=== PATIENT | female | born 1935 | race Caucasian/White ===

== ENCOUNTER → 2016-08-28 | Outpatient (CLI) | payer MEDICARE ==
[~2016-08-28] MED LIST: ACET-819 PO; AMLO10TA82 PO; AMLO5TAB2 PO; AMOX500C2 PO; APIX5TAB2 PO; ASP81TEC PO; BNZ20T PO; CEFA-4 PO; CLPD75T PO; CODE-54 PO; CPR500T PO; DRON400T PO; FAMO20TA13 PO; FURO20TA4 PO; HYDR-757 PO; LVT.05T PO; LVT.1T PO; MULT-298 PO; NF-CODDM PO; OMEP20CA12 PO; OMEP20TA2 PO; PNT40TEC PO; POTA10CA43 PO; PRAS10TA6 PO; PRAV10TA PO; SIMV20TA3 PO; STL80T PO
--- NOTE | 2016-08-30 10:05 | ECHOCARDIOGRAPHY REPORT ---
DATE OF SERVICE: 08/28/2016 TWO DIMENSIONAL ECHOCARDIOGRAM REFERRING PHYSICIAN: Josue Modi MD MEASUREMENT: LVID end diastolic 4.0, IVS thickness 1.2, LVPW thickness 1.1, left atrial diameter 3.9, ejection fraction 60%. FINDINGS: 1. Technical quality is good. 2. The left ventricle is normal in size with normal contractility, systolic function appeared to be normal. Estimated ejection fraction is 60%, diastolic dysfunction is suggested by Doppler. 3. The left atrium is in the upper normal limits in size. No clot or thrombus were seen within the left atrium. 4. The right atrium and right ventricle are normal in size. No clot or thrombus were seen within the right side. 5. Mitral valve is normal in morphology with mild mitral regurgitation noted by color Doppler flow. No mitral valve prolapse. No mitral valve stenosis. 6. Aortic valve is trileaflet with normal opening and closing pattern. No significant aortic stenosis or regurgitation was seen. 7. Tricuspid valve is normal in morphology with mild tricuspid regurgitation noted by color Doppler flow. Doppler across triscuspid valve estimated pulmonary artery pressure of 30 plus right atrial pressure. 8. Pulmonic valve is functioning normally. 9. No pericardial effusion. CONCLUSION: 1. Normal left ventricular size and systolic function, estimated ejection fraction is 60%, diastolic dysfunction is suggested by Doppler. 2. Left atrium is in the upper normal limit in size. 3. Mild mitral and tricuspid regurgitation. 4. Estimated pulmonary artery pressure of 35 to 40 mmHg. Job ID: [id number] DocumentID: [id number] Dictated Date: 08/29/2016 16:07:44 Senior Economist Date: 08/29/2016 19:30:02 Dictated By: DENAE GARCIA MD
== END ==
LOC: CARD 10:29
PROVIDERS: ATTEND Physician Assistant
DX: I48.0 Paroxysmal atrial fibrillation (principal); I25.10 Atherosclerotic heart disease of native coronary artery without angina pectoris; I10 Essential (primary) hypertension; E78.2 Mixed hyperlipidemia
CPT/HCPCS: 93306

== ENCOUNTER → 2016-08-29 | Outpatient (CLI) | payer MEDICARE ==
[~2016-08-29] VITALS: Ht 157.5 cm; Wt 72.6 kg
[~2016-08-29] MED LIST changes: +CATHETER FLUSH 10 ML SYR IV PRN; +REGADENOSON 0.4 MG/5 ML SYR (LEXISCAN) IV ONE
[2016-08-29 13:34] VITALS: BP 188/88
[2016-08-29 13:37] VITALS: BP 201/100
[2016-08-29 13:41] VITALS: BP 167/74
--- NOTE | 2016-08-30 06:13 | STRESS TEST ---
DATE OF SERVICE: 08/29/2016 LEXISCAN MYOVIEW STRESS TEST REPORT REFERRING PHYSICIAN: Dr. Modi. Baseline heart rate is 66. Baseline blood pressure 188/88. Baseline EKG is sinus rhythm with no ischemic changes. In summary, the patient was injected with 10.18 mCi of technetium-99 Myoview and the resting images were obtained. Then, the patient received 0.4 mg of Lexiscan followed by 29.6 mCi of technetium-99 Myoview. Throughout the test, there were no EKG changes. There is mild apical thinning affecting the quality of the images. Overall, there is no significant ischemia or infarction that was noted. SSS 6. SDS 3. TID value 0.91. On the gated images, the left ventricle appeared to be small in size with normal contractility. Calculated ejection fraction 85%. CONCLUSIONS: 1. The patient tolerated Lexiscan well. 2. Apical thinning with no significant ischemia or infarction on SPECT images. 3. Small left ventricular size with normal contractility, calculated ejection fraction 85%. Job ID: [id number] DocumentID: [id number] Dictated Date: 08/29/2016 15:17:50 Buttoner Date: 08/29/2016 20:04:55 Dictated By: DENAE GARCIA MD
== END ==
LOC: CARD 11:56
PROVIDERS: ATTEND Physician Assistant
DX: I48.0 Paroxysmal atrial fibrillation (principal); I25.10 Atherosclerotic heart disease of native coronary artery without angina pectoris; I10 Essential (primary) hypertension; E78.2 Mixed hyperlipidemia
CPT/HCPCS: 78452; 93017

== ENCOUNTER 2016-09-11 15:49 | Outpatient (RCR) | payer MEDICARE ==
[~2016-09-11 15:49] MED LIST changes: -CATHETER FLUSH 10 ML SYR IV PRN; -REGADENOSON 0.4 MG/5 ML SYR (LEXISCAN) IV ONE
== END 2016-09-11 16:42 | disposition home or self-care (01) ==
DX: M54.5 Low back pain (principal)

== ENCOUNTER → 2017-03-13 | Outpatient (CLI) | payer MEDICARE ==
--- NOTE | 2017-03-14 14:54 | Diagnostic Imaging Report ---
Bilateral screening mammogram 2D views with tomosynthesis The current study was also evaluated with a Computer Aided Detection (CAD) system. Indication: Screening. No current complaints stated on the questionnaire. COMPARISON: 03/05/2016. Findings: The breasts are composed of scattered fibroglandular densities. There are bilateral scattered benign-appearing and vascular calcifications seen bilaterally. Pacemaker projecting over the left axillary region seen. Allowing for technique and positional differences, no suspicious change is seen. IMPRESSION: No significant change. ACR BI-RADS Category 2: Benign findings. Result letter will be mailed to the patient. Note: At least 10% of breast cancer is not imaged by mammography. Dictated by: Dictated on workstation # [id number]
== END ==
LOC: RAD 14:04
DX: Z12.31 Encounter for screening mammogram for malignant neoplasm of breast (principal)
CPT/HCPCS: 77067

== ENCOUNTER → 2017-10-16 | Outpatient (CLI) | payer MEDICARE ==
--- NOTE | 2017-10-16 15:57 | Diagnostic Imaging Report ---
EXAMINATION: Lumbar spine. INDICATION: Back pain. AP, lateral, and spot lateral views were obtained. FINDINGS: The AP view does show pronounced levoscoliosis of the upper lumbar spine. The scoliosis has progressed since the prior CT abdomen/pelvis exam of 03/01/2008. There is also severe degenerative disc and bony disease at L1-2, L2-3, and L3-4. There also appear to be six lumbar-type segments. This is a developmental variant. There is no fracture or acute bony abnormality appreciated. There is no sign of a paraspinal mass. There is mild symmetrical sclerosis of the sacroiliac joints. IMPRESSION: 1. There is no evidence for an acute bony abnormality. 2. There is severe levoscoliosis of the upper lumbar spine. There is also significant degenerative disc and bony disease of L1-2, L2-3, and L3-4. 3. If there is clinical concern regarding spinal stenosis or nerve root encroachment, then MRI would be recommended for additional study. Dictated by: Dictated on workstation # [id number]
--- NOTE | 2017-10-16 16:01 | Diagnostic Imaging Report ---
EXAMINATION: Right hip at 3:26 p.m. INDICATION: Hip pain. AP and lateral views were obtained. FINDINGS: There is no fracture, dislocation, or acute bony abnormality evident. There is mild degenerative disease involving the hip joint. The degenerative changes have not progressed since the prior CT abdomen/pelvis exam of 03/01/2008. The mild sclerosis of the right sacroiliac joint seen previously is also no different. The soft tissues are unremarkable. IMPRESSION: There is no evidence for an acute bony abnormality. Dictated by: Dictated on workstation # [id number]
== END ==
LOC: RAD 14:41
DX: M51.36 Other intervertebral disc degeneration, lumbar region (principal); M41.86 Other forms of scoliosis, lumbar region
CPT/HCPCS: 72100; 73502

== ENCOUNTER → 2017-10-21 | Outpatient (CLI) | payer MEDICARE ==
--- NOTE | 2017-10-21 12:52 | Diagnostic Imaging Report ---
PROCEDURE: CT lumbar spine without contrast. TECHNIQUE: Multiple contiguous axial images were obtained through the lumbar spine without the use of intravenous contrast. Sagittal and coronal reformations were then performed. INDICATION: Low back pain. FINDINGS: Marked left convexity lumbar scoliotic curvature is noted. There is grade 1 spondylolisthesis of L5 on S1. There appears to be a pars defect on the left side at the L5-S1 level. The right-sided pars is intact. Significant degenerative disc disease at T12-L1, L1-L2 and L2-L3 levels is seen with disc space narrowing and marginal spurring. There is severe degenerative disc disease at L3-L4 with disc space narrowing and spurring as well as vacuum disc phenomena. Moderate degenerative disc disease at L5-S1 level is seen with disc space narrowing and vacuum disc phenomena. There is multilevel facet arthropathy, particularly left-sided facets at L4-L5 and L5-S1 levels. The vertebral body heights appear to be maintained. No acute fracture is identified. There appears to be right-sided neuroforaminal stenosis due to large right-sided osteophyte at L1-L2. Similar findings are identified on the right side at the L2-L3 level where there is a large right-sided osteophyte. There appears to be left neuroforaminal stenosis at L3-L4 level due to end plate osteophytes. There is also left neuroforaminal stenosis at L5-S1 level. There appears to be a moderate central canal stenosis at L4-L5 due to ligamentous thickening and broad-based disc/osteophyte complex. Remaining central canal appears to be patent. Paraspinous tissues demonstrate severe atherosclerotic calcifications in the abdominal aorta which is nonaneurysmal. IMPRESSION: Severe lumbar scoliosis and spondylosis with multilevel neuroforaminal stenosis described level by level above. No acute fracture is seen. There is spondylolisthesis of L5 on S1 with left-sided L5-S1 pars defect. Dictated by: Dictated on workstation # [id number]
== END ==
LOC: RAD 12:07
DX: M51.35 Other intervertebral disc degeneration, thoracolumbar region (principal); M51.37 Other intervertebral disc degeneration, lumbosacral region; M41.86 Other forms of scoliosis, lumbar region; M43.17 Spondylolisthesis, lumbosacral region; M46.87 Other specified inflammatory spondylopathies, lumbosacral region; M99.73 Connective tissue and disc stenosis of intervertebral foramina of lumbar region; I70.0 Atherosclerosis of aorta
CPT/HCPCS: 72131

== ENCOUNTER → 2018-08-22 | Outpatient (CLI) | payer MEDICARE | LOC: CARD 12:38 | PROVIDERS: ATTEND Physician Assistant | DX: I25.10 Atherosclerotic heart disease of native coronary artery without angina pectoris (principal); R07.9 Chest pain, unspecified; I10 Essential (primary) hypertension; E78.5 Hyperlipidemia, unspecified; K21.9 Gastro-esophageal reflux disease without esophagitis; I08.3 Combined rheumatic disorders of mitral, aortic and tricuspid valves | CPT/HCPCS: 93306 ==

== ENCOUNTER → 2018-08-25 | Outpatient (CLI) | payer MEDICARE ==
[~2018-08-25] MED LIST changes: +CATHETER FLUSH 10 ML SYR IV PRN; +REGADENOSON 0.4 MG/5 ML SYR (LEXISCAN) IV ONE
[2018-08-25 09:38] VITALS: BP 196/92
[2018-08-25 09:42] VITALS: BP 195/103
[2018-08-25 09:43] VITALS: BP 195/103
--- NOTE | 2018-08-25 15:24 | STRESS TEST ---
DATE OF SERVICE: 08/25/2018 LEXISCAN MYOVIEW STRESS TEST REPORT REFERRING PHYSICIAN: Josue Modi MD INDICATION: Chest pain. FINDINGS: Baseline heart rate is 69, baseline blood pressure 196/92. Baseline EKG is sinus rhythm with no ischemic changes. SUMMARY: The patient was injected with 10.08 mCi of technetium-99 Myoview and the resting images were obtained. Then, the patient received 0.4 mg of Lexiscan followed by 31.2 mCi of technetium-99 Myoview. Throughout the test, there were no EKG changes. The resting and stress images were reviewed and compared in the short axis, horizontal long axis, and vertical long axis views. Review of the images showed small left ventricle with no significant ischemia or infarction. SSS is 2, SDS of 0, TID value of 1.1. On the gated images, the left ventricle appeared to be in normal size with normal contractility. Calculated ejection fraction is 60%. CONCLUSION: 1. The patient tolerated Lexiscan well. 2. Typical female pattern with no significant ischemia or infarction on SPECT images. 3. Normal left ventricular size with normal contractility. Calculated ejection fraction 60%. Job ID: [id number] DocumentID: [id number] Dictated Date: 08/25/2018 11:44:35 Browning Processor Date: 08/25/2018 15:23:26 Dictated By: DENAE GARCIA MD
== END ==
LOC: CARD 08:02
PROVIDERS: ATTEND Physician Assistant
DX: I25.10 Atherosclerotic heart disease of native coronary artery without angina pectoris (principal); R07.9 Chest pain, unspecified; I10 Essential (primary) hypertension; K21.9 Gastro-esophageal reflux disease without esophagitis; E78.5 Hyperlipidemia, unspecified
CPT/HCPCS: 78452; 93017

== ENCOUNTER 2021-02-22 05:07 | Emergency (ER) | payer MEDICARE ==
[~2021-02-22] VITALS: Ht 157.4 cm; Wt 71.2 kg
[~2021-02-22 05:07] MED LIST changes: -CATHETER FLUSH 10 ML SYR IV PRN; -REGADENOSON 0.4 MG/5 ML SYR (LEXISCAN) IV ONE
--- NOTE | 2021-02-22 05:55 | ED General ---
General Chief Complaint: Cough/Cold/Flu Symptoms Stated Complaint: COUGH,CONGESTION,DIARRHEA Nursing Triage Note: Pt arrives via POV from home for c/o cough, congestion, et diarrhea; onset . Pt denies known COVID positive contacts. Pt states she has received Moderna COVID vaccine x2. Pt reports SOB on exertion but states this is chronic. Source of Information: Patient Exam Limitations: No Limitations (CASIMIRO BHAGAT MD) History of Present Illness Date Seen by Provider: Feb 22, 2021 Time Seen by Provider: 05:14 Initial Comments This 85-year-old woman presents to the emergency room with complaints of cough, congestion, diarrhea, nausea, and mild shortness of breath for about 5 days. She denies any fever. She states her has been encouraging her to be seen. Her primary care doctor is not in the office today so she decided to come to the emergency room. She has numerous health problems including atrial fib rillation, coronary artery disease, hypothyroidism, and diabetes. She reports being started on Metformin a few months ago when she is due for labs. She has been vaccinated for COVID-19 x2 but not influenza. (CASIMIRO BHAGAT MD) Allergies and Home Medications Allergies Coded Allergies: Sulfa (Sulfonamide Antibiotics) (Verified Allergy, Unknown, 12/29/09) acetaminophen (Unverified Allergy, Unknown, 07/18/13) cefaclor (Verified Allergy, Unknown, 12/29/09) meperidine (Verified Allergy, Unknown, 12/29/09) propoxyphene (Unverified Allergy, Unknown, 07/18/13) Patient Home Medication List Home Medication List Reviewed: Yes (CASIMIRO BHAGAT MD) Acetaminophen (Tylenol Extra Strength Arthrit) 500 Mg Tablet, 500 MG PO BID PRN, (Reported) Entered as Reported by: YAKOV TIJERINA on 12/29/09 1611 Acetaminophen/Codeine (Tylenol W/Codeine #3 Tablet) 1 Tab Tablet, 1 TAB PO Q4H PRN for PAIN Prescribed by: STEPHANIE GARCIA on 03/05/142210 Amlodipine Besylate (Amlodipine Besylate) 5 Mg Tablet, 5 MG PO DAILY, (Reported) Entered as Reported by: PAOLO KATHLEEN on 03/05/142120 Apixaban (Eliquis Tablet) 5 Mg Tablet, 5 MG PO BID Prescribed by: RODNEY KELSEY on 07/22/13 1522 Benazepril Hcl (Lotensin 20 Mg) 20 Mg Tablet, 20 MG PO DAILY, (Reported) Entered as Reported by: YAKOV TIJERINA on 12/29/09 1611 Furosemide (Furosemide) 20 Mg Tablet, 1 EACH PO DAILY, (Reported) Entered as Reported by: PAOLO KATHLEEN on 03/05/142120 Levothyroxine Sodium (Synthroid) 100 Mcg Tablet, 100 MCG PO DAILY, (Reported) Entered as Reported by: RODNEY WHITNEY on 03/01/11 1407 Pantoprazole Sodium (Protonix) 40 Mg Tablet.dr, 40 MG PO DAILY, (Reported) Entered as Reported by: TRINI BARRY on 08/24/132003 Potassium Chloride (Potassium Chloride 10 Meq Cap) 10 Meq Capsule.sa, 1 EACH PO DAILY WITH FOOD, (Reported) Entered as Reported by: PAOLO KATHLEEN on 03/05/142120 Pravastatin Sodium (Pravastatin Sodium) 10 Mg Tablet, 20 MG PO HS Prescribed by: RODNEY KELSEY on 07/22/13 152 Sotalol Hcl (Betapace) 80 Mg Tab, 80 MG PO BID Prescribed by: DENAE DENNY on 08/28/13 0915 Review of Systems Review of Systems Constitutional: weakness EENTM: see HPI, other (Dry mouth) Respiratory: see HPI Cardiovascular: see HPI Gastrointestinal: see HPI Genitourinary: no symptoms reported Musculoskeletal: back pain (Chronic) Skin: no symptoms reported Psychiatric/Neurological: No Symptoms Reported Hematologic/Lymphatic: No Symptoms Reported Immunological/Allergic: no symptoms reported (CASIMIRO BHAGAT MD) Past Sldfkhf-Yvceam-Phmqyw Hx Patient Social History Tobacco Use?: No Use of E-Cig and/or Vaping dev: No Substance use?: No Alcohol Use?: No Pt feels they are or have been: No (CASIMIRO BHAGAT MD) Immunizations Up To Date Tetanus Booster (TDap): Less than 5yrs COVID19 Vaccine Account Services Representative: [place] (CASIMIRO BHAGAT MD) Past Medical History Surgeries: Yes Abdominal (D&C), Bladder Surgery, Coronary Stent Respiratory: No Cardiac: Yes Atrial Fibrillation, High Cholesterol, Hypertension Neurological: No : No Reproductive Disorders: Yes Genitourinary: Yes Bladder Infection Gastrointestinal: Yes Colitis, Gastroesophageal Reflux, Pancreatitis Musculoskeletal: Yes Arthritis Endocrine: Yes Hypothyroidsim HEENT: Yes Cataract Cancer: No Psychosocial: No Adverse Reaction/Blood Tranf: No (CASIMIRO BHAGAT MD) Family Medical History Reviewed Nursing Family Hx (CASIMIRO BHAGAT MD) Cancer of colon 19 MOTHER Family history: Cardiovascular disease 19 FATHER 19 MOTHER G8 BROTHER (CAD, CABG) G8 SISTER (AFIB, VALVE PROBLEMS) Family history: Hypertension 19 FATHER 19 MOTHER Heart disease 19 FATHER 19 MOTHER G8 BROTHER G8 SISTER History of - disorder 19 FATHER (TIA) History of - respiratory disease 19 MOTHER ( OF PULMONARY EMBOLISM) Myocardial infarction 19 FATHER G8 BROTHER Heart Disease, Diabetes, Stroke (CASIMIRO BHAGAT MD) Physical Exam Vital Signs Vital Signs - First Documented (IRIS MCFARLANE MD) Vital Signs Capillary Refill : Less Than 3 Seconds (CASIMIRO BHAGAT MD) Height, Weight, BMI Height: 5'2.00" Weight: 160lbs. 0.0oz. 72.708274mi; 28.00 BMI Method:Stated General Appearance: No Apparent Distress, WD/WN HEENT: PERRL/EOMI, Normal ENT Inspection, Other (Mucous membranes somewhat) Neck: Normal Inspection; No JVD Respiratory: Lungs Clear, No Accessory Muscle Use, No Respiratory Distress, Decreased Breath Sounds Cardiovascular: Regular Rate, Rhythm, No Edema, No Murmur Gastrointestinal: Normal Bowel Sounds, Non Tender, Soft Extremity: Normal Inspection, Non Tender, No Pedal Edema Neurologic/Psychiatric: Alert, Oriented x3, No Motor/Sensory Deficits, Normal Mood/Affect, central supply tech II-XII Norm as Tested Skin: Normal Color, Warm/Dry (CASIMIRO BHAGAT MD) Progress/Results/Core Measures Suspected Sepsis SIRS Temperature: Pulse: 62 Respiratory Rate: 18 Laboratory Tests 02/22/21 05:50: White Blood Count 10.5 Blood Pressure 190 /77 Mean: 114 Laboratory Tests 02/22/21 05:50: Creatinine 0.80, Platelet Count 242, Total Bilirubin 0.7 (CASIMIRO BHAGAT MD) Results/Orders Lab Results Laboratory Tests Test 02/22/21 05:20 12/1/21 05:50 Range/Units Influenza Type A (RT-PCR) Not Detected Not Detecte Influenza Type B (RT-PCR) Not Detected Not Detecte SARS-CoV-2 RNA (RT-PCR) Not Detected Not Detecte White Blood Count 10.5 4.3-11.0 10^3/uL Red Blood Count 4.25 3.80-5.11 10^6/uL Hemoglobin 12.6 11.5-16.0 g/dL Hematocrit 39 35-52 % Mean Corpuscular Volume 91 80-99 fL Mean Corpuscular Hemoglobin 30 25-34 pg Mean Corpuscular Hemoglobin Concent 33 32-36 g/dL Red Cell Distribution Width 13.2 10.0-14.5 % Platelet Count 242 130-400 10^3/uL Mean Platelet Volume 10.3 9.0-12.2 fL Immature Granulocyte % (Auto) 0 % Neutrophils (%) (Auto) 64 42-75 % Lymphocytes (%) (Auto) 17 12-44 % Monocytes (%) (Auto) 19 H 0-12 % Eosinophils (%) (Auto) 1 0-10 % Basophils (%) (Auto) 0 0-10 % Neutrophils # (Auto) 6.7 1.8-7.8 10^3/uL Lymphocytes # (Auto) 1.7 1.0-4.0 10^3/uL Monocytes # (Auto) 2.0 H 0.0-1.0 10^3/uL Eosinophils # (Auto) 0.1 0.0-0.3 10^3/uL Basophils # (Auto) 0.0 0.0-0.1 10^3/uL Immature Granulocyte # (Auto) 0.0 0.0-0.1 10^3/uL Sodium Level 140 135-145 MMOL/L Potassium Level 4.0 3.6-5.0 MMOL/L Chloride Level 104 98-107 MMOL/L Carbon Dioxide Level 24 21-32 MMOL/L Anion Gap 12 5-14 MMOL/L Blood Urea Nitrogen 12 7-18 MG/DL Creatinine 0.80 0.60-1.30 MG/DL Estimat Glomerular Filtration Rate 69 BUN/Creatinine Ratio 15 Glucose Level 156 H 70-105 MG/DL Calcium Level 9.5 8.5-10.1 MG/DL Corrected Calcium 9.5 8.5-10.1 MG/DL Magnesium Level 1.8 1.6-2.4 MG/DL Total Bilirubin 0.7 0.1-1.0 MG/DL Aspartate Amino Transf (AST/SGOT) 14 5-34 U/L Alanine Aminotransferase (ALT/SGPT) 7 0-55 U/L Alkaline Phosphatase 42 40-136 U/L Total Protein 7.4 6.4-8.2 GM/DL Albumin 4.0 3.2-4.5 GM/DL (IRIS MCFARLANE MD) Vital Signs/I&O 02/22/21 02/22/21 05:20 05:20 Temp 37.4 Pulse 62 Resp 18 B/P (MAP) 190/77 (114) Pulse Ox 95 O2 Delivery Room Air Room Air (IRIS MCFARLANE MD) Vital Signs/I&O Capillary Refill : Less Than 3 Seconds (CASIMIRO BHAGAT MD) Blood Pressure Mean: 114 Progress Note #1: Time: 06:10 Progress Note Patient was seen and examined. Labs and chest x-ray are pending. Although she has been vaccinated for COVID-19, we are swabbing her to test for breakthrough case. No therapies are required at this time. Care is being transferred to Dr. MCFARLANE at shift change. Progress Note #2: Time: 06:49 Progress Note Work-up was relatively benign. Chest x-ray showed some mild congestive features with cardiomegaly and BNP was minimally elevated. This does not appear to require acute treatment at this time. I am hesitant to recommend any diuretic therapy at this time due to her active diarrhea. Patient would appreciate something for cough suppression. I am prescribing Tessalon Perls for her. (CASIMIRO BHAGAT MD) Diagnostic Imaging Diagonstic Imaging: Xray (CASIMIRO BHAGAT MD) Diagonstic Imaging: Xray Plain Films/CT/US/NM/MRI: chest Comments [facility]. [place], [place] NAME: SHAWN OROSCO [facility] REC#: [id number] PT STATUS: REG ER : 1935 PHYSICIAN: CASIMIRO BHAGAT MD ADMIT DATE: 02/22/21/ER Draft Date of Exam:02/22/21 CHEST 1 VIEW, AP/PA ONLY INDICATION: Cough. TECHNIQUE: Single view chest 6:07 AM. CORRELATION STUDY: 08/04/2014 FINDINGS: Left-sided dual-chamber pacemaker. Cardiac enlargement. Vasculature slightly increased from prior. The lungs are clear with no consolidating infiltrate. There is no significant effusion or pneumothorax. IMPRESSION: 1. Cardiac enlargement with vasculature appearing slightly more prominent from prior. May reflect early fluid overload. Dictated on workstation # [id number] Dict: 02/22/21615 Trans: 02/22/2118 GRECIA [id number] Interpreted by: MARGO TERESA DO Electronically signed by: (IRIS MCFARLANE MD) Departure Impression Primary Impression: Cough Additional Impressions: Diarrhea Qualified Codes: R19.7 - Diarrhea, unspecified Abnormal chest x-ray Disposition: HOME, SELF-CARE Condition: Stable Departure-Patient Inst. Decision time for Depature: 06:51 (CASIMIRO BHAGAT MD) Referrals: KB MODI MD (PCP/Family) Primary Care Physician Patient Instructions: Diarrhea, Adult ED Add. Discharge Instructions: Your chest x-ray showed some mild congestion and enlargement of your heart. This may be due to some mild heart failure from your atrial fibrillation and coronary artery disease. This may eventually require some diuretic (water pill) therapy. Please follow-up with Dr. Modi and/or Dr. Denny as soon as possible to discuss this further. In the meantime, drink plenty of clear liquids to stay well-hydrated while you have diarrhea. You may use the Tessalon Perles as prescribed as a cough suppressant. Avoid dairy products or fatty or greasy foods until your diarrhea has been resolved for a few days. Call with questions or concerns. Return to emergency room if you have worsening symptoms. All discharge instructions reviewed with patient and/or family. Voiced understanding. Scripts Benzonatate (TESSALON PERLES) 100 Mg Capsule 200 MG PO TID PRN for COUGH, #20 CAP Prov: CASIMIRO BHAGAT MD 02/22/21 Copy Copies To 1: KB MODI MD Copies To 2: DENAE DENNY MD, JOSHUA T MD Feb 22, 2021 05:55 IRIS MCFARLANE MD Feb 22, 2021 06:29
[2021-02-22 05:58] LABS: BASOPHILS % (AUTO) 0 % (0-10); EOSINOPHILS # (AUTO) 0.1 10^3/uL (0.0-0.3); EOSINOPHILS % (AUTO) 1 % (0-10); HEMATOCRIT 39 % (35-52); HEMOGLOBIN 12.6 g/dL (11.5-16.0); LYMPHOCYTES # (AUTO) 1.7 10^3/uL (1.0-4.0); LYMPHOCYTES % (AUTO) 17 % (12-44); MEAN CORPUSCULAR HEMOGLOBIN 30 pg (25-34); MEAN CORPUSCULAR HGB CONC 33 g/dL (32-36); MEAN CORPUSCULAR VOLUME 91 fL (80-99); MEAN PLATELET VOLUME 10.3 fL (9.0-12.2); MONOCYTES % (AUTO) 19 % (0-12); NEUTROPHILS # (AUTO) 6.7 10^3/uL (1.8-7.8); NEUTROPHILS % (AUTO) 64 % (42-75); PLATELET COUNT 242 10^3/uL (130-400); WHITE BLOOD COUNT 10.5 10^3/uL (4.3-11.0)
[2021-02-22 06:10] LABS: CALCIUM 9.5 MG/DL (8.5-10.1)
[2021-02-22 06:11] LABS: TOTAL PROTEIN 7.4 GM/DL (6.4-8.2)
[2021-02-22 06:13] LABS: BILIRUBIN,TOTAL 0.7 MG/DL (0.1-1.0)
[2021-02-22 06:15] LABS: CREATININE SERUM 0.8 MG/DL (0.60-1.30)
[2021-02-22 06:17] LABS: MAGNESIUM 1.8 MG/DL (1.6-2.4)
--- NOTE | 2021-02-22 06:19 | Diagnostic Imaging Report ---
INDICATION: Cough. TECHNIQUE: Single view chest 6:07 AM. CORRELATION STUDY: 08/04/2014 FINDINGS: Left-sided dual-chamber pacemaker. Cardiac enlargement. Vasculature slightly increased from prior. The lungs are clear with no consolidating infiltrate. There is no significant effusion or pneumothorax. IMPRESSION: 1. Cardiac enlargement with vasculature appearing slightly more prominent from prior. May reflect early fluid overload. Dictated by: Dictated on workstation # [id number]
[2021-02-22 06:32] LABS: FREE T4 (FREE THYROXINE) 1.31 NG/DL (0.70-1.48)
[2021-02-22 06:36] LABS: NEUTROPHILS % (MANUAL) 72 %
[2021-02-22 06:37] LABS: LYMPHOCYTES % (MANUAL) 13 %; MONOCYTES % (MANUAL) 15 %; RBC MORPH NORMAL
[2021-02-22] MEDS ORDERED: BENZ100C18 PO (06:54)
[2021-02-22 07:06] VITALS: BP 190/77
== END 2021-02-22 07:06 | disposition home or self-care (01) ==
LOC: EDUNIT# 05:07 → ER 05:10
DX: R05.9 Cough, unspecified (principal); R19.7 Diarrhea, unspecified; I10 Essential (primary) hypertension; K21.9 Gastro-esophageal reflux disease without esophagitis; E03.9 Hypothyroidism, unspecified; I48.91 Unspecified atrial fibrillation; E78.00 Pure hypercholesterolemia, unspecified; I25.10 Atherosclerotic heart disease of native coronary artery without angina pectoris; E11.9 Type 2 diabetes mellitus without complications; Z20.822 Contact with and (suspected) exposure to COVID-19; Z79.890 Hormone replacement therapy; Z79.899 Other long term (current) drug therapy; Z79.01 Long term (current) use of anticoagulants
CPT/HCPCS: 36415; 71045; 80053; 83036; 83735; 83880; 84439; 84443; 85007; 85027; 87636

== ENCOUNTER → 2021-06-07 | Outpatient (CLI) | payer MEDICARE ==
[~2021-06-07] MED LIST changes: +BENZ100C18 PO
== END ==
LOC: CARD 14:00
PROVIDERS: ATTEND Internal Medicine Cardiovascular Disease
DX: I08.3 Combined rheumatic disorders of mitral, aortic and tricuspid valves (principal); I11.9 Hypertensive heart disease without heart failure; I25.10 Atherosclerotic heart disease of native coronary artery without angina pectoris
CPT/HCPCS: 93306

== ENCOUNTER → 2021-11-14 | Outpatient (CLI) | payer MEDICARE ==
--- NOTE | 2021-11-14 14:21 | Diagnostic Imaging Report ---
INDICATION: Postmenopausal screening. COMPARISON: 03/01/2016. FINDINGS: AP Spine L1-L4: [BMD (g/cm2): 1.483] [T-Score: 2.4] [Z-Score: 4.2] [BMD Previous: 1.262] [BMD % Change: 17.5] LT Hip Neck: [BMD (g/cm2): 0.989] [T-Score: -0.3] [Z-Score: 1.9] LT Hip Total: [BMD (g/cm2):0.943] [T-Score:-0.5] [Z-Score: 1.6] [BMD Previous: 0.890] [BMD % Change: 6.0] RT Hip Neck: [BMD (g/cm2):0.891] [T-Score:-1.1] [Z-Score:1.2] RT Hip Total: [BMD (g/cm2):0.981] [T-score:-0.2] [Z-Score:1.9] [BMD Previous:0.987] [BMD % Change:-0.6] *Indicates significant change from prior examination based on 95% confidence level. World Health Organization criteria for BMD interpretation classify patients as Normal (T-score at or above -1.0), Osteopenic (T-score between -1.0 and -2.5) or Osteoporotic (T-score at or below -2.5). LIMITATIONS AND MODIFICATION: None. FRACTURE RISK (FRAX SCORE): The ten year probability of (%): Major Osteoporotic Fracture: [11.8] Hip Fracture: [2.7] IMPRESSION: 1. Normal bone mineral density. 2. There has been a statistically significant increase in BMD since prior exam, detailed above. 3. See below National Osteoporosis Foundation guidelines on when to potentially initiate pharmacologic therapy. Based on the National Osteoporosis Foundation Guidelines, pharmacologic treatment should be initiated in any of the following, unless clinical conditions suggest otherwise: * Any patient with prior fragility fracture of the hip or vertebrae. A spine fracture indicates 5X risk for subsequent spine fracture and 2X risk for subsequent hip fracture. * Osteoporosis (T-score <-2.5). * Postmenopausal women and men age 50 and older with low bone mass/osteopenia (T-score between -1.0 and -2.5) by DXA and 10-year major osteoporotic fracture greater than 20% or a 10-year probability of hip fracture greater than 3%. These fracture risks are supplied above in the FRAX score, if applicable. * Clinician judgement and/or patient preferences may indicate treatment for people with 10-year fracture probabilities above or below these levels. Dictated by: Dictated on workstation # [id number]
--- NOTE | 2021-11-14 18:55 | Diagnostic Imaging Report ---
INDICATION: Left hip pain FINDINGS: Two views of the left hip show narrowing of the joint space in the hip with osteophytes forming at the articular margins. IMPRESSION: Moderate degenerative changes of the left hip. No fracture or dislocation. Dictated by: Dictated on workstation # [id number]
--- NOTE | 2021-11-14 19:28 | Diagnostic Imaging Report ---
INDICATION: Left hip pain FINDINGS: Bilateral SI joint films are performed. No ankylosis or joint separation. There are degenerative changes to the SI joints. There is advanced lower lumbar spondylosis and facet arthrosis asymmetric, greater left. IMPRESSION: Mild SI joint degenerative changes without ankylosis, erosion or suspicious sclerosis. Severe lower lumbar spondylosis and facet arthrosis asymmetric greater left. Dictated by: Dictated on workstation # [id number]
== END ==
LOC: RAD 12:43
PROVIDERS: ATTEND Family Medicine
DX: Z13.820 Encounter for screening for osteoporosis (principal); M47.817 Spondylosis without myelopathy or radiculopathy, lumbosacral region; M16.12 Unilateral primary osteoarthritis, left hip; M85.89 Other specified disorders of bone density and structure, multiple sites; Z78.0 Asymptomatic menopausal state
CPT/HCPCS: 72202; 73502; 77080

== ENCOUNTER 2022-01-19 14:54 | Outpatient (RCR) | payer MEDICARE | END 2022-01-22 | disposition home or self-care (01) | PROVIDERS: ATTEND Pain Medicine Interventional Pain Medicine | DX: M54.42 Lumbago with sciatica, left side (principal); G89.29 Other chronic pain; I10 Essential (primary) hypertension ==

== ENCOUNTER → 2022-02-21 | Outpatient (RCR) | payer MEDICARE | END | disposition home or self-care (01) | PROVIDERS: ATTEND Pain Medicine Interventional Pain Medicine | DX: M51.16 Intervertebral disc disorders with radiculopathy, lumbar region (principal); M47.26 Other spondylosis with radiculopathy, lumbar region; I10 Essential (primary) hypertension ==

== ENCOUNTER 2022-03-08 15:25 | Outpatient (RCR) | payer MEDICARE | END 2022-03-24 | disposition home or self-care (01) | PROVIDERS: ATTEND Pain Medicine Interventional Pain Medicine | DX: M47.26 Other spondylosis with radiculopathy, lumbar region (principal); M51.16 Intervertebral disc disorders with radiculopathy, lumbar region; I10 Essential (primary) hypertension ==

== ENCOUNTER 2022-07-11 08:00 | Day surgery (SDC) | payer MEDICARE ==
[~2022-07-11] VITALS: Ht 157.5 cm; Wt 67.9 kg
[2022-07-11] VITALS (8 sets, daily range): BP systolic 131–143; BP diastolic 57–84
[2022-07-11 07:25] LABS: BILIRUBIN,URINE NEGATIVE (NEGATIVE); CLARITY,URINE CLEAR; COLOR,URINE YELLOW; GLUCOSE, URINE (UA) NEGATIVE (NEGATIVE); KETONES,URINE NEGATIVE (NEGATIVE); LEUKOCYTE ESTERASE ,URINE NEGATIVE (NEGATIVE); NITRITE,URINE NEGATIVE (NEGATIVE); PH,URINE 6.5 (5-9); PROTEIN,URINE NEGATIVE (NEGATIVE)
[2022-07-11 07:25] LABS: HEMATOCRIT 39 % (35-52); HEMOGLOBIN 12.7 g/dL (11.5-16.0); MEAN CORPUSCULAR HEMOGLOBIN 29 pg (25-34); MEAN CORPUSCULAR HGB CONC 33 g/dL (32-36); MEAN CORPUSCULAR VOLUME 88 fL (80-99); MEAN PLATELET VOLUME 10.5 fL (9.0-12.2); PLATELET COUNT 274 10^3/uL (130-400); WHITE BLOOD COUNT 7.5 10^3/uL (4.3-11.0)
[2022-07-11 07:31] LABS: BACTERIA,URINE FEW /HPF; RBC,URINE RARE /HPF; WBC,URINE RARE /HPF
[2022-07-11 07:36] LABS: INR 1.2 (0.8-1.4); PROTHROMBIN TIME PATIENT 15.9 SEC (12.2-14.7)
--- NOTE | 2022-07-11 07:55 | Diagnostic Imaging Report ---
EXAMINATION: Chest 1 view HISTORY: Pacemaker. Coronary artery disease. COMPARISON: 02/22/2021. FINDINGS: The lung volumes are normal. No focal consolidation is seen. No large pleural effusion or pneumothorax is seen. The cardiomediastinal silhouette is prominent with left pectoral dual-chamber pacemaker in place. There is calcified aortic atherosclerotic plaque. No acute osseous abnormality is seen. IMPRESSION: 1. Cardiomegaly. No overt pulmonary edema. Dictated by: Dictated on workstation # [id number]
[2022-07-11 07:56] LABS: ALBUMIN 4.3 GM/DL (3.2-4.5); POTASSIUM 3.7 MMOL/L (3.6-5.0)
[2022-07-11 07:58] LABS: CALCIUM 9.6 MG/DL (8.5-10.1)
[2022-07-11 07:59] LABS: TOTAL PROTEIN 7.8 GM/DL (6.4-8.2)
[~2022-07-11 08:00] MED LIST changes: +ACET-2267 PO; +AMLO-250 PO; +APIX5TAB PO; +BENA-3 PO; +CATHETER FLUSH 10 ML SYR IV PRN; +HEParin (CATH LAB) 1,000 ML IV ONE; +HYDR25TA4 PO; +LEVO88CA4 PO; +LIDOCAINE 1% INJ 20 ML VIAL ONE; +METF-478 PO; +MIDAZOLAM 5 MG/5 ML (VERSED) VIAL ONE; +NS (IVPB) 250 ML ONE; +NS IV 1000 ML 1,000 ML IV ONE; +NS IV 1000 ML 2,000 ML ONE; +PANT40TA52 PO; +ROSU10TA28 PO; +SOTA120T PO; +VANCOMYCIN 1000 MG/VIAL ONE; +VANCOMYCIN INJECTION 1,000 MG in NS (IVPB) 250 ML IV ONE; +fentaNYL INJ 100 MCG/2 ML AMP ONE
[2022-07-11 08:01] LABS: BILIRUBIN,TOTAL 0.6 MG/DL (0.1-1.0)
[2022-07-11 08:02] LABS: CREATININE SERUM 0.87 MG/DL (0.60-1.30)
--- NOTE | 2022-07-11 08:17 | Cardiac Procedure Note-CS/ASA ---
Pre-Procedure Note Pre-Op Procedure Note Date of Available H&P: Jul 10, 2022 Date H&P Reviewed: Jul 11, 2022 Time H&P Reviewed: 08:16 History & Physical: H&P Reviewed, Patient Examed, No changes noted Pre-Operative Diagnosis: CHF Moderate Sedation PreProcedure Time 08:17 ASA Score 3 Airway Lungs Heart ASA score ASA 1: a normal healthy patient ASA 2: a patient with a mild systemic disease (mid diabetes, controlled hypertension, obesity ASA 3: a patient with a severe systemic disease that limits activity (angina, COPD, prior Myocardial infarction) ASA 4: a patient with an incapacitating disease that is a constant threat to life (CHF, renal failure) ASA 5: a moribund patient not expected to survive 24 hrs. (ruptured aneurysm) ASA 6: a declared brain- patient whose organs are being harvested. For emergent operations, add the letter E after the classification Mallampati Classification Grade 3 Sedation Plan Analgesia, Amnesia, Plan communicated to team members, Discussed options with patient/fam, Discussed risks with patient/fam The patient is an appropriate candidate to undergo the planned procedure, sedation, and anesthesia. The patient immediately re-assessed prior to indication. DENAE GARCIA MD Jul 11, 2022 08:17
[2022-07-11] MEDS ORDERED: ACETAMINOPHEN 500 MG TAB (TYLENOL) PO PRN (09:15)
[2022-07-11] MEDS ORDERED: NS IV 1000 ML 1,000 ML IV SCH (09:15)
[2022-07-11] MEDS ORDERED: PATIENT MAY USE OWN MEDS, ALL PO SCH (09:15)
--- NOTE | 2022-07-11 09:17 | Packmaker Change ---
Pacemaker Change Physician (s)/Modeling Director (s) Physician DENAE GARCIA MD Pre-Procedure Diagnosis Pre-Procedure Diagnosis: CHF Post-Procedure Note Procedure Start Date: Jul 11, 2022 Name of Procedure: Dual-chamber pacemaker generator change Findings/Procedure Note 86-year-old lady with a history of sinus node dysfunction, paroxysmal atrial fibrillation, has dual-chamber pacemaker, reached [facility] Scheduled for generator change. After explaining the procedure to the patient all pros and cons were explained, patient signed a consent then she was placed on the cardiac catheterization laboratory. Conscious sedation achieved. Skin incision was made and the device was exposed then removed. Pocket was irrigated with saline. A new device dual-chamber pacemaker was attached to the leads. Leads were inspected. Direct patch was placed around the new device The device was placed back in the pocket and skin was closed on 2 layers of sutures. No complication noted Device information. CARLENE XT MRI [id number] Existing leads Atrial lead [id number] Ventricular lead [id number] Post implantation interrogation Atrial lead amplitude 3.5, pulse width 0.4, sensitivity 0.3. Ventricular lead amplitude 3.5, pulse width 0.4, sensitivity 0.9. Conclusion Successful dual-chamber pacemaker generator change Anesthesia Type: Conscious Sedation Estimated blood loss (mL): 5 ML Contrast Amount: 0 ML Post-Procedure Diagnosis Post-operative diagnosis: Sinus node dysfunction Paroxysmal atrial fibrillation Hypertension Palpitation DENAE GARCIA MD Jul 11, 2022 09:17
[2022-07-11] MEDS ORDERED: CEFU500T63 PO (09:23)
--- NOTE | 2022-07-11 09:24 | Discharge Inst-Post CATH ---
Discharge Inst-CATH/EP Problems Reviewed?: Yes Post Cardiac Cath/EP D/C Inst Follow Up/Plan Appointment with Dr. Denny's office in 1 week <b>CARDIAC CATH/EP PROCEDURE DISCHARGE INSTRUCTIONS</b> ACTIVITY * Go Home directly and rest. * Limit activity of the leg (or wrist if it was used) for 7 days including aerobics, swimming, jogging, bicycling, etc. * Restrict stair-climbing for 7 days if possible, if not, climb up with your non-cath leg, then bring together on the same step. * Avoid lifting, pushing, pulling or excessive movement of the affected extremity for 7 days. * Customary sexual activity may be resumed after 2 days-use caution not to use a position that strains or causes pain to the affected extremity. * No driving for 24 hours. * NO SMOKING. * Avoid straining for bowel movements for 7 days. * Gentle walking on level ground is allowed. * Returning to work will depend on the type of procedure and the results. Your doctor will discuss this with you. CALL YOUR DOCTOR FOR ANY OF THE FOLLOWING: *If bleeding from the puncture site occurs- Apply gentle pressure to site with clean cloth and call your doctor or EMS. * If a knot or lump forms under the skin, increases in size, or causes pain. * If bruising appears to be worsening or moving further down your leg instead of disappearing. * Temperature above 101 F. CARE OF YOUR GROIN INCISION; * Bruising or purple discoloration of the skin near the puncture site is common. * You may shower only, no bathtub bathing for 5 days. Be careful to avoid slipping as your leg may feel stiff. * If a closure device was used on your femoral artery, please see the attached guide regarding care of the device and your leg. * Leave dressing on FOR 24 hours. CARE OF YOUR WRIST INCISION; * Bruising or purple discoloration of the skin near the puncture site is common. * You may shower. * DO NOT submerge wrist. * Leave dressing on FOR 24 hours. DENAE DENNY MD Jul 11, 2022 09:24
[2022-07-11] MEDS ORDERED: NON-FORMULARY MEDICATION 1 EA EA (Sotalol HCl (Sotalol) 120 MG) PO SCH ×2 (10:00→21:00)
[2022-07-11] MEDS ORDERED: ceFAZolin INJECTION 1,000 MG in NS (IVPB) 50 ML IV SCH (14:00)
[2022-07-11] MEDS ORDERED: metFORMIN XR 500 MG (GLUCOPHAGE XR) TAB PO SCH (14:00)
[2022-07-11] MEDS ORDERED: PANTOPRAZOLE 40 MG (PROTONIX) TAB PO SCH (14:00)
[2022-07-11] MEDS ORDERED: APIXABAN 5 MG (ELIQUIS) TABLET PO SCH (21:00)
[2022-07-11] MEDS ORDERED: ROSUVASTATIN 10 MG (CRESTOR) TABLET PO SCH (21:00)
[2022-07-11] MEDS ORDERED: NON-FORMULARY MEDICATION 1 EA EA (Benazepril HCl 20 MG) PO SCH (21:00)
[2022-07-12] MEDS ORDERED: amLODIPine 5 MG (NORVASC) TAB PO SCH (09:00)
[2022-07-12] MEDS ORDERED: LEVOTHYROXINE SODIUM 88 MCG PO SCH (09:00)
== END 2022-07-11 12:10 ==
LOC: CATH 08:00 → SDC 10:04 → CATH 12:10
PROVIDERS: ATTEND Internal Medicine Cardiovascular Disease
DX: Z45.010 Encounter for checking and testing of cardiac pacemaker pulse generator [battery] (principal); I11.0 Hypertensive heart disease with heart failure; I50.9 Heart failure, unspecified; I49.5 Sick sinus syndrome; I48.0 Paroxysmal atrial fibrillation; E66.9 Obesity, unspecified; I25.10 Atherosclerotic heart disease of native coronary artery without angina pectoris; K21.9 Gastro-esophageal reflux disease without esophagitis; I65.23 Occlusion and stenosis of bilateral carotid arteries; E03.9 Hypothyroidism, unspecified; G89.29 Other chronic pain; M25.519 Pain in unspecified shoulder; M54.9 Dorsalgia, unspecified; M54.30 Sciatica, unspecified side; E78.2 Mixed hyperlipidemia; Z68.27 Body mass index [BMI] 27.0-27.9, adult; Z95.5 Presence of coronary angioplasty implant and graft; Z79.899 Other long term (current) drug therapy; Z79.01 Long term (current) use of anticoagulants; Z79.890 Hormone replacement therapy
CPT/HCPCS: 33228; 71045; 80053; 80061; 81000; 85027; 85610; 85730; 87081; 93005; C1785; 36415

== ENCOUNTER → 2022-08-22 | Outpatient (CLI) | payer MEDICARE ==
[~2022-08-22] MED LIST changes: -CATHETER FLUSH 10 ML SYR IV PRN; +CATHETER FLUSH 10 ML SYR IVP PRN; +CEFU500T63 PO; -HEParin (CATH LAB) 1,000 ML IV ONE; -LIDOCAINE 1% INJ 20 ML VIAL ONE; -MIDAZOLAM 5 MG/5 ML (VERSED) VIAL ONE; -NS (IVPB) 250 ML ONE; -NS IV 1000 ML 1,000 ML IV ONE; -NS IV 1000 ML 2,000 ML ONE; +REGADENOSON 0.4 MG/5 ML SYR (LEXISCAN) IV ONE; -VANCOMYCIN 1000 MG/VIAL ONE; -VANCOMYCIN INJECTION 1,000 MG in NS (IVPB) 250 ML IV ONE; -fentaNYL INJ 100 MCG/2 ML AMP ONE
[2022-08-22 09:35] VITALS: BP 209/89
--- NOTE | 2022-08-22 11:56 | Cardiology Stress Test Report ---
Stress Test Report Date of Procedure/Referring: Date of Procedure: August 22, 2022 PCP Tolu Sherman MD Admitting Physician Admitting Physician: Attending Physician: Melida Marshall Indications: CP Baseline Heart Rate: 73 Baseline Blood Pressure: Blood Pressure Systolic: 209 Blood Pressure Diastolic: 89 Baseline Vitals Vital Signs Date Time Temp Pulse Resp B/P (MAP) Pulse Ox O2 Delivery O2 Flow Rate FiO2 08/22/22 09:35 73 209/89 (129) Baseline EKG: Baseline EKG: LBBB Summary After explaining the procedure to the patient, she signed a consent and then brought to the stress nuclear laboratory. Patient received 0.4 mg Lexiscan for stress test, ECG, heart rate and blood pressure were monitored continuously. Resting and stress dose of radio tracer were injected, imaging was acquired and reviewed in short axis, horizontal long axis and vertical long axis views. TID: 0.99 SSS: 6 SDS: 1 EF: 80 Patient tolerated Lexiscan well Underlying paced rhythm with left bundle branch block No significant ischemia or infarction noted on SPECT images, there is a fixed defect at the inferior wall Normal left ventricular size, ejection fraction 80% Copy Copies To 1: TOLU SHERMAN MD, BASHAR J MD August 22, 2022 11:56
== END ==
LOC: CARD 07:51
PROVIDERS: ATTEND Physician Assistant
DX: R07.9 Chest pain, unspecified (principal)
CPT/HCPCS: 78452; 93017; A9502